=== PATIENT | female | born 1980 | race Caucasian/White ===

== ENCOUNTER 2017-10-02 03:39 | Emergency (ER) | payer OTHER ==
[~2017-10-02] VITALS: Ht 165.1 cm; Wt 78.0 kg
[2017-10-02 04:40] LABS: CHLORIDE 108 mEq/L (99-109); POTASSIUM 4.2 mEq/L (3.7-5.4); SODIUM 146 mEq/L (136-147)
[2017-10-02 04:41] LABS: HEMATOCRIT 48.9 % (36.0-46.0); MCH 32.7 PG (29.0-34.0); MCHC 34.4 G/DL (30.0-36.0); MCV 95.1 FL (83-99); MEAN PLAT.VOLUME 10.2 uM^3 (9.5-12.4); PLATELET COUNT 291 K/uL (156-360); RBC DIS.WIDTH-CV 13.8 % (11.8-14.6); RBC DIS.WIDTH-SD 48.4 % (39-53); RED BLOOD COUNT 5.14 M/uL (3.80-5.20); WHITE BLOOD COUNT 12.1 K/uL (4.1-10.2)
[2017-10-02 04:42] LABS: GLUCOSE 84 mg/dL (70-99)
[2017-10-02 04:43] LABS: ANION GAP 14 MEQ/L (2-14)
[2017-10-02 04:45] LABS: SERUM ETHYL ALCOHOL 161 mg/dL
[2017-10-02 04:46] LABS: GFR ESTIMATE (CALCULATED) > 59 mL/min/
[2017-10-02 04:47] LABS: UREA NITROGEN (BUN) 8 mg/dL (9-23)
[2017-10-02 04:54] LABS: QUANTITATIVE HCG < 4.0 MIU/ML
[2017-10-02] MEDS ORDERED: NAPROSYN500 MG PO (07:19)
[2017-10-02 10:42] VITALS: BP 104/74
== END 2017-10-02 09:00 | disposition home or self-care (01) ==
LOC: EME 03:39
PROVIDERS: Emergency Medicine
DX: S00.93XA Contusion of unspecified part of head, initial encounter (principal); S00.31XA Abrasion of nose, initial encounter; S10.93XA Contusion of unspecified part of neck, initial encounter; Y04.2XXA Assault by strike against or bumped into by another person, initial encounter; T71.9XXA Asphyxiation due to unspecified cause, initial encounter; Y07.01 Husband, perpetrator of maltreatment and neglect; F10.129 Alcohol abuse with intoxication, unspecified; Y90.6 Blood alcohol level of 120-199 mg/100 ml; R42 Dizziness and giddiness; F17.200 Nicotine dependence, unspecified, uncomplicated
CPT/HCPCS: 70450; 70486; 70498; 80048; 84702; 85027; 99281; 99285; G0480